=== PATIENT | male | born 1960 | race Caucasian/White ===

== ENCOUNTER → 2019-08-28 | Emergency (ER) | payer OTHER ==
[~2019-08-28] VITALS: Ht 182.9 cm; Wt 86.2 kg
[~2019-08-28] MED LIST: TOPROL XL25 M1
== END | disposition designated cancer center or children's hospital (05) ==
LOC: ER 16:41 → CPU-OBS 18:20 → ER 18:20
DX: I21.4 Non-ST elevation (NSTEMI) myocardial infarction (principal)